=== PATIENT | male | born 1945 | race Caucasian/White ===

== ENCOUNTER 2017-02-08 06:55 | Day surgery (SDC) | payer MEDICARE ==
[~2017-02-08 06:55] MED LIST: FENTANYL 250 MCG/5 ML AMP IV PRN; LACTATED RINGERS 1,000 ML IV SCH; LIDOCAINE Viscous 2% 15 ML UDCUP PO PRN; MIDAZOLAM HCL 5 MG/5 ML VIAL IV PRN
[2017-02-08] MEDS ORDERED: LACTATED RINGERS 1,000 ML ONE (07:04)
[2017-02-08] MEDS ORDERED: IV START KIT ONE (07:04)
[2017-02-08] MEDS ORDERED: LIDOCAINE Viscous 2% 15 ML UDCUP PO PRN (07:26)
[2017-02-08] MEDS ORDERED: FENTANYL 100 MCG/2 ML VIAL ONE (07:35)
[2017-02-08] MEDS ORDERED: MIDAZOLAM HCL 5 MG/5 ML VIAL ONE ×2 (07:35→07:36)
[2017-02-08] MEDS ORDERED: FENTANYL 250 MCG/5 ML AMP ONE (07:37)
[2017-02-08 13:17] LABS: HELICOBACTER PYLORII DETECTION NEGATIVE (NEGATIVE)
--- NOTE | 2017-02-12 15:06 | SURGPATH ---
[facility] [address] [place] [id number] Patient Name: ROBERT MALIK MR#: [id number] : 1945 Gender: M Specimen #: [id number] Collected: 02/08/2017 Received: 02/09/2017 Reported: 02/12/2017 Submitting Phys: FERMIN CLIFTON Copy To Phys: [facility] Clinical History / Pre-Operative Diagnosis: History of gastric ulcer; blood in stool; rule out gastritis Specimen Source / Surgical Procedure Performed: Antral Interpretation: STOMACH, ANTRUM, BIOPSY: - MINIMAL, FOCAL ACTIVE INFLAMMATION - NO HELICOBACTER ORGANISMS SEEN ON ROUTINE STAIN Electronically Signed Out Lydia Hernandez M.D. Gross Description: The specimen is received in a formalin filled container labeled with the patient's name and "antral". Two garg biopsies are 0.3 and 0.5 cm. Totally embedded in one cassette. Elio Powell Microscopic Description: Sections show gastric antral and oxyntic mucosa with overall intact architecture. Minimal, focal chronic inflammation is seen with a few neutrophils. No Helicobacter organisms are seen on routine stain. No dysplasia or malignancy is seen. 1: [id number] K25.4
== END 2017-02-08 09:42 | disposition home or self-care (01) ==
LOC: SDC 06:55
PROVIDERS: ATTEND Internal Medicine Gastroenterology
PROC: 0DB68ZX Excision of Stomach, Via Natural or Artificial Opening Endoscopic, Diagnostic (ICD-10-PCS; principal; 2017-02-08)
DX: D50.9 Iron deficiency anemia, unspecified (principal); K57.30 Diverticulosis of large intestine without perforation or abscess without bleeding; K29.80 Duodenitis without bleeding; K29.70 Gastritis, unspecified, without bleeding; Z86.010 Personal history of colon polyps; Z87.11 Personal history of peptic ulcer disease; I10 Essential (primary) hypertension; Z79.82 Long term (current) use of aspirin